=== PATIENT | female | born 1965 | race Caucasian/White ===

== ENCOUNTER 2016-12-15 19:39 | Emergency (ER) | payer BC ==
--- NOTE | 2016-12-15 21:39 | UC ---
Knee Pain HPI - HPI Summary HPI Summary: SUDDEN ONSET OF RIGHT KNEE PAIN AND STIFFNESS 2-3 WEEKS AGO. NO DISCRETE INJURY. 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 DOES NOT FEEL UNSTABLE. JUST HURTS. CAN NOT STRAIGHTEN IT. HEARS IT CRACKING AND POPPING. HAS BEEN USING A KNEE SLEEVE WHICH HELPS. - History of Current Complaint Chief Complaint: UCLowerExtremity Stated Complaint: knee pain Time Seen by Provider: 12/15/16 21:26 Hx Obtained From: Patient Hx Last Menstrual Period: 04/25/12 Onset/Duration: Gradual Onset, Lasting Weeks, Still Present Severity Initially: Moderate Severity Currently: Moderate Pain Intensity: 3 Pain Scale Used: 0-10 Numeric Character: Aching Aggravating Factor(s): Movement, Weight Bearing, Stairs Alleviating Factor(s): Rest, Position Associated Signs And Symptoms: Negative: Swelling, Redness, Weakness, Numbness, Tingling Able to Bear Weight: Yes - Allergies/Home Medications Allergies/Adverse Reactions: Allergies Allergy/AdvReac Type Severity Reaction Status Date / Time No Known Allergies Allergy Verified 12/15/16 19:54 PMH/Surg Hx/FS Hx/Imm Hx - Additional Past Medical History Additional PMH: FACTOR V LEIDEN Previously Healthy: Yes - Surgical History Surgical History: None - Family History Family History: noncontrib - Social History Alcohol Use: None Substance Use Type: None Smoking Status (MU): Never Smoked Tobacco Review of Systems Constitutional: Negative Skin: Negative Respiratory: Negative Cardiovascular: Negative Gastrointestinal: Negative Musculoskeletal: Arthralgia, Decreased ROM All Other Systems Reviewed And Are Negative: Yes Physical Exam Triage Information Reviewed: Yes Appearance: Well-Appearing, No Pain Distress, Well-Nourished Vital Signs: Initial Vital Signs Temp 99.6 F 12/15/16 19:50 Pulse 76 12/15/16 19:50 Resp 18 12/15/16 19:50 BP 104/67 12/15/16 19:50 Pulse Ox 97 12/15/16 19:50 Vital Signs Reviewed: Yes Eyes: Positive: Conjunctiva Clear ENT: Positive: Hearing grossly normal Neck: Positive: Supple Respiratory: Positive: No respiratory distress, No accessory muscle use Cardiovascular: Positive: Pulses Normal Abdomen Description: Positive: Soft Musculoskeletal: Positive: ROM Intact, No Edema, Other: - RIGHT KNEE: NO JOINT LINE TENDERNESS OR TENDERNESS OVER ANY BONY PROMINENCES. MCL AND LCL INTACT TO STRESS TESTING. NEG LACHMANS. NEG DRAWERS SIGNS. NEG MCMURRAYS. POS PATELLAR APPREHENSION TEST. NO TENDERNESS OVER PATELLAR LIGAMENT OR QUADRICEPS TENDON. ABLE TO MOVE THROUGH FULL ROM BUT VERY SLOWLY AND TENTATIVELY Neurological: Positive: Alert Psychological: Positive: Age Appropriate Behavior Skin: Negative: rashes Diagnostics - Radiology RIGHT KNEE XRAY Xray Interpretation: Positive (See Comments) - MILD OSTEOARTHRITIS Radiology Interpretation Completed By: Radiologist Knee Pain Course/Dx - Course Course Of Treatment: PT DECLINED KNEE IMMOBILIZER AND PAIN MEDS. FOLLOW-UP PCP OR ORTHO. - Differential Dx/Diagnosis Provider Diagnoses: RIGHT KNEE PAIN Discharge - Discharge Plan Condition: Stable Disposition: HOME Patient Education Materials: Knee Pain (ED) Forms: *Work Release Referrals: Sajan Barajas MD [Medical Doctor] - 2 Days Channing Gonzalez MD [Primary Care Provider] - If Needed Additional Instructions: MILD OSTEOARTHRITIS ON KNEE XRAY TODAY. OKAY TO USE KNEE SLEEVE FOR SUPPORT. FOLLOW-UP WITH PCP OR ORTHO.
--- NOTE | 2016-12-15 21:46 | RAD ---
INDICATION: Right knee pain. TECHNIQUE: 4 views of the right knee were obtained. FINDINGS: The bones are in normal alignment. No joint effusion or fracture is seen. There is mild osteoarthritic change in the patellofemoral compartment. IMPRESSION: MILD OSTEOARTHRITIC CHANGE.
[2016-12-15 22:00] VITALS: BP 102/61
== END 2016-12-15 22:21 | disposition home or self-care (01) ==
LOC: UCEAST 19:39
DX: M25.561 Pain in right knee (principal); M17.11 Unilateral primary osteoarthritis, right knee; D68.51 Activated protein C resistance
CPT/HCPCS: 99211; G0463

== ENCOUNTER 2017-04-05 07:15 | Emergency (ER) | payer BC ==
[2017-04-05 07:29] VITALS: BP 109/71
--- NOTE | 2017-04-18 16:15 | UC ---
Adan Jhaveri Natalie, scribed for Sheree Evans DO on 04/05/17 at 0827 . Respiratory Complaint HPI - HPI Summary HPI Summary: The pt is a 51 y/o F presenting to [facility] c/o upper respiratory symptoms starting 04/02/17. She is in current sinus pain. The pain is described as aching and sharp. The pain is rated 2/10. Pt additionally c/o sinus pressure, headache, sore throat, ear ache, and unproductive cough. Pt denies SOB. - History of Current Complaint Chief Complaint: UCRespiratory Stated Complaint: UPPER RESPITORY Time Seen by Provider: 04/05/17 08:14 Hx Obtained From: Patient Hx Last Menstrual Period: 04/25/12 Onset/Duration: Lasting Days - started 04/02/17, Still Present Severity Initially: Moderate Severity Currently: Moderate Pain Intensity: 2 Pain Scale Used: 0-10 Numeric Character: Cough: Nonproductive Aggravating Factors: Nothing Alleviating Factors: Nothing Associated Signs And Symptoms: Positive: Nasal Congestion, Sinus Discomfort. Negative: Fever - Allergies/Home Medications Allergies/Adverse Reactions: Allergies Allergy/AdvReac Type Severity Reaction Status Date / Time No Known Allergies Allergy Verified 04/05/17 07:25 PMH/Surg Hx/FS Hx/Imm Hx Cardiovascular History: Other - homozygous for Factor V Leiden Other Cardiovascular History: homozygous for Factor V Leiden - Surgical History Surgical History: Yes Surgery Procedure, Year, and Place: shoulder surgery - Family History Known Family History: Positive: Cardiac Disease, Diabetes, Other - Factor V Leiden - Social History Alcohol Use: None Substance Use Type: None Smoking Status (MU): Never Smoked Tobacco Review of Systems Constitutional: Other - NEGATIVE: fever ENT: Sore Throat, Ear Ache Respiratory: Cough - productive, Other - POSITIVE: sinus pressure; NEGATIVE: SOB Neurological: Headache All Other Systems Reviewed And Are Negative: Yes Physical Exam Triage Information Reviewed: Yes Vital Signs: Initial Vital Signs Temp 99.3 F 04/05/17 07:25 Pulse 99 04/05/17 07:25 Resp 17 04/05/17 07:25 BP 109/71 04/05/17 07:25 Pulse Ox 100 04/05/17 07:25 Vital Signs Reviewed: Yes - Additional Comments Appearance: Well-Appearing, No Pain Distress, Well-Nourished Eyes: conjunctiva clear, no discharge ENT: Hearing grossly normal, no muffled/hoarse voice, TMs normal, negative tonsillar swelling, negative tonsillar exudate, negative trismus, Minimal tenderness over maxillofacial Neck: Normal, Supple Respiratory/Lung Sounds: Lungs clear, Normal breath sounds, No respiratory distress, No accessory muscle use Cardiovascular: RRR, No murmur Musculoskeletal: Normal Neurological: Alert, muscle tone normal Psychiatric: Normal, age appropriate behavior Skin: Normal, Warm, Dry, Normal color UC Diagnostic Evaluation - Laboratory O2 Sat by Pulse Oximetry: 100 Respiratory Course/Dx - Course Course Of Treatment: Patient will be discharged with prescription for guaifenesin and follow up from PCP. The patient is agreeable with this plan. Medications reviewed. Allergies reviewed. - Differential Dx/Diagnosis Provider Diagnoses: Sinusitis Discharge - Discharge Plan Condition: Stable Disposition: HOME Prescriptions: Guaifenesin [Guaifenesin ER] 600 mg PO BID #1 box Patient Education Materials: Sinusitis (ED) Forms: *Work Release Referrals: Channing Gonzalez MD [Primary Care Provider] - 4 Days Additional Instructions: TRY USING THE NETTI POT IN THE MORNINGS DISCUSSED. YOU MUST ALWAYS USE CLEAN WATER. REMEMBER, POSTURE IS AN IMPORTANT FACTOR IN SINUS DRAINAGE. MOVE YOUR NECK, BREATHE. EXPECTORANT MEDICATION: WE SENT IN A SCRIPT FOR MUCINEX SO THAT IT IS EASIER FOR YOU TO PICK THE RIGHT MED AT THE PHARMACY. HOWEVER, YOU CAN ALSO GO TO THE [facility] AND BUY PLAIN GUAIFENESIN WITHOU BINDERS OR FILLERS. An expectorant medicine has been prescribed. This type of drug makes mucous thinner, helping the sinuses, nose, and bronchial tubes to remain free of pus and mucous. Expectorants make a cough less severe and more comfortable, and help infected sinuses drain. In general, antihistamines defeat the purpose of the expectorant by making mucous thicker. They should be avoided unless specifically recommended by your physician. The documentation as recorded by the Adan forbes Natalie accurately reflects the service I personally performed and the decisions made by , Sheree Evans DO.
== END 2017-04-05 08:45 | disposition home or self-care (01) ==
LOC: UCEAST 07:15
DX: J32.9 Chronic sinusitis, unspecified (principal); D68.51 Activated protein C resistance
CPT/HCPCS: 99212; G0463

== ENCOUNTER 2017-05-30 15:51 | Emergency (ER) | payer BC ==
[2017-05-30] MEDS ORDERED: cefTRIAXone(*) 2 GM in NS 0.9% 100 ML* 100 ML IVPB ONE (16:39)
[2017-05-30] MEDS ORDERED: cefTRIAXone VIAL(*) 1,000 MG VIAL ONE ×2 (16:45→16:47)
--- NOTE | 2017-05-30 16:51 | UC ---
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, worsening - History Of Current Complaint Chief Complaint: UCGU Stated Complaint: PAIN W/ URINATION Time Seen by Provider: 05/30/17 16:09 Hx Obtained From: Patient Hx Last Menstrual Period: 04/25/12 Severity Initially: Moderate Severity Currently: Severe Pain Intensity: 5 - Allergies/Home Medications Allergies/Adverse Reactions: Allergies Allergy/AdvReac Type Severity Reaction Status Date / Time No Known Allergies Allergy Verified 05/30/17 15:58 Home Medications: Home Medications Ascorbic Acid TAB* [Vitamin C TAB*] 500 mg PO DAILY 05/30/17 [History Confirmed 05/30/17] PMH/Surg Hx/FS Hx/Imm Hx - Additional Past Medical History Additional PMH: none Previously Healthy: Yes - Surgical History Surgical History: Yes Surgery Procedure, Year, and Place: shoulder surgery - Family History Known Family History: Positive: Cardiac Disease, Diabetes, Other - Factor V Leiden Family History: noncontrib - Social History Alcohol Use: None Substance Use Type: None Smoking Status (MU): Never Smoked Tobacco Review of Systems Constitutional: Chills, Fatigue Skin: Negative Eyes: Negative ENT: Negative Respiratory: Negative Cardiovascular: Negative Gastrointestinal: Negative Genitourinary: Dysuria, Frequency, Urgency Motor: Negative Neurovascular: Negative Musculoskeletal: Negative Neurological: Negative Psychological: Negative All Other Systems Reviewed And Are Negative: Yes Physical Exam Triage Information Reviewed: Yes Vital Signs: Initial Vital Signs Temp 38.0 C 05/30/17 15:55 Pulse 106 05/30/17 15:55 Resp 18 05/30/17 15:55 BP 123/84 05/30/17 15:55 Pulse Ox 100 05/30/17 15:55 Eye Exam: Normal ENT Exam: Normal Dental Exam: Normal Neck exam: Normal Neck: Positive: 1 Respiratory Exam: Normal Cardiovascular Exam: Normal Abdomen Description: Positive: Soft, CVA Tenderness (R), CVA Tenderness (L). Negative: Distended, Guarding Musculoskeletal Exam: Normal Neurological Exam: Normal Psychological Exam: Normal Skin Exam: Normal Complaint Female Dx - Course Course Of Treatment: UA positive for LE, blood, cloudy with a pH of 7 - Differential Dx/Diagnosis Differential Diagnosis/HQI/PQRI: Urinary Tract Infection Provider Diagnoses: pyelonephritis. UTI Discharge - Discharge Plan Condition: Stable Disposition: HOME Prescriptions: Sulfamethox/Trimethoprim DS* [Bactrim DS 800/160 TAB*] 1 tab PO BID 10 Days #20 tab Patient Education Materials: Kidney Infection (ED), Urinary Tract Infection in Women (ED) Referrals: Channing Gonzalez MD [Primary Care Provider] -
[2017-05-30] MEDS ORDERED: NS 0.9% 1000 ML* 1,000 ML IV ONE ×2 (17:45→18:48)
[2017-05-30] MEDS ORDERED: Ketorolac INJ* 30 MG/ML 1 ML VIAL IM ONE (18:09)
[2017-05-30] MEDS ORDERED: Acetaminophen TAB* 325 MG PO ONE (18:10)
[2017-05-30 19:26] VITALS: BP 123/68
== END 2017-05-30 19:20 | disposition home or self-care (01) ==
LOC: UCEAST 15:51
DX: N12 Tubulo-interstitial nephritis, not specified as acute or chronic (principal); N39.0 Urinary tract infection, site not specified; R53.83 Other fatigue
CPT/HCPCS: 81003; 87077; 87086; 87186; 96361; 96365; 99212; A9270-GY; G0463; J0696; J1885

== ENCOUNTER 2017-05-30 19:39 | Emergency (ER) | payer BC ==
[2017-05-30] MEDS ORDERED: Ondansetron INJ* 2 MG/ML VIAL IV ONE (20:03)
[2017-05-30] MEDS ORDERED: NS 0.9% 1000 ML* 1,000 ML IV ONE (20:03)
[2017-05-30 20:34] LABS: ABS Basophils 0.1 10^3/ul (0-0.2); ABS Eosinophils 0 10^3/ul (0-0.6); ABS Monocytes 0.6 10^3/ul (0-0.8); ABS Neutrophils 10.8 10^3/ul (1.5-7.7); ABS Nucleated RBC 0 10^3/ul; Eosinophil % 0.1 % (0-6); Hematocrit 33 % (35-47); Hemoglobin 11.2 g/dl (12.0-16.0); Lymphocyte % 14.5 % (25-47); Mean Corpuscular HGB Conc 34 g/dl (31-36); Mean Corpuscular Hemoglobin 29 pg (27-31); Mean Corpuscular Volume 85 fL (80-97); Mean Platelet Volume 8 um3 (7.4-10.4); Nucleated Red Blood Cells % 0; Platelet Count 169 10^3/ul (150-450); Red Cell Distribution Width 14 % (10.5-15); White Blood Count 13.5 10^3/ul (3.5-10.8)
[2017-05-30 20:52] LABS: EGFR Non-African American 98.8 (>60)
--- NOTE | 2017-05-30 21:38 | RAD ---
CLINICAL HISTORY: Abdominal pain COMPARISON: None relevant available at the time of dictation TECHNIQUE: Multiple contiguous axial CT scans were obtained of the abdomen and pelvis, without intravenous contrast enhancement. Coronal and sagittal multiplanar reformations are submitted for review. Oral contrast was administered. FINDINGS: The study is limited by the lack of intravenous contrast. This limits evaluation of the solid organs and vasculature. LUNG BASES: The lung bases are clear. LIVER: The liver is normal in shape, size, contour, and attenuation. BILE DUCTS: There is no intrahepatic or extrahepatic biliary dilatation. GALLBLADDER: The gallbladder is normal, without pericholecystic inflammatory change. PANCREAS: The pancreas is normal, without mass or ductal dilatation. SPLEEN: Normal in size and appearance. UPPER GI TRACT: Evaluation of the gastrointestinal tract is limited by incomplete gastric distention. The upper GI tract is unremarkable. SMALL BOWEL AND MESENTERY: The small bowel is normal in contour, course, and caliber. There is no obstruction or dilatation. COLON: The colon is normal in contour, course, caliber. There is no pericolonic inflammatory change. There is a tubular, vermiform, hollow viscus that is blind ending, and originates from the cecum, consistent with a normal appendix. There is no periappendiceal inflammatory change. This is best seen on axial images 94 through 101 ADRENALS: Normal bilaterally. KIDNEYS: There is mild edema of the right kidney with moderate pelvocaliectasis and hydroureter. There is a punctate calculus of the distal right ureter at the UVJ measuring 0.2 cm in size. BLADDER: The bladder is smooth in contour. PELVIC ORGANS: The uterus and adnexa are grossly normal for technique. AORTA: The aorta is normal. IVC: Unremarkable LYMPH NODES: There is no lymphadenopathy by size criteria. ABDOMINAL WALL: There is a small fat-containing umbilical hernia. BONES AND SOFT TISSUES: Mild degenerative changes noted at L5-S1 OTHER: None IMPRESSION: PUNCTATE RIGHT UVJ STONE WITH MODERATE RIGHT HYDRONEPHROSIS.
[2017-05-30 21:42] LABS: Urine Appearance Cloudy; Urine Blood 2+ (Negative); Urine Color Straw; Urine Ketones Negative (Negative); Urine Protein Negative (Negative); Urine Specific Gravity 1.002 (1.010-1.030); Urine Urobilinogen Negative (Negative)
[2017-05-30] MEDS ORDERED: Vancomycin(*) 1,000 MG in NS 0.9% 250 ML* 250 ML IVPB ONE (22:05)
[2017-05-30] MEDS ORDERED: Ketorolac INJ* 30 MG/ML 1 ML VIAL IV PUSH ONE (22:21)
--- NOTE | 2017-05-30 22:56 | ED ---
Sandra Jhaveri Julia, scribed for Massimo Rockwell MD on 05/30/17 at 2220 . Abdominal Pain/Female - HPI Summary HPI Summary: This patient is a 51 year old F presenting to [facility] with a chief complaint of sudden severe bilateral flank pain radiating to the abdomen worse on left than right since 14:30 today. Patient reports nausea, currently resolved vomiting, dysuria, and a maximum fever of 100.8. The patient rates the pain 1/10 in severity. Patient was sent to the emergency department from [facility], where she was given Rocephin (2 grams), and Toradol. Patient denies a history of kidney stones and back injury. - History of Current Complaint Chief Complaint: EDFlankPain Stated Complaint: FLANK PAIN SENT FROM Time Seen by Provider: 05/30/17 19:53 Hx Obtained From: Patient Hx Last Menstrual Period: 04/25/12 Onset/Duration: Sudden Onset, Lasting Hours, Still Present Timing: Constant Severity Initially: Severe Severity Currently: Mild Pain Intensity: 1 Pain Scale Used: 0-10 Numeric Location: Flank Radiates: Yes Radiates to: Other - abdomen worse on left Associated Signs and Symptoms: Positive: Fever, Urinary Symptoms, Nausea, Vomiting Allergies/Adverse Reactions: Allergies Allergy/AdvReac Type Severity Reaction Status Date / Time No Known Allergies Allergy Verified 05/30/17 15:58 PMH/Surg Hx/FS Hx/Imm Hx Endocrine/Hematology History: Denies: Hx Diabetes Cardiovascular History: Denies: Hx Hypertension, Hx Pacemaker/ICD Respiratory History: Denies: Hx Asthma History: Denies: Hx Kidney Stones Sensory History: Denies: Hx Hearing Aid Psychiatric History: Denies: Hx Panic Disorder - Cancer History Hx Chemotherapy: No Hx Radiation Therapy: No - Surgical History Surgery Procedure, Year, and Place: shoulder surgery Infectious Disease History: No Infectious Disease History: Denies: Hx Clostridium Difficile, Hx Hepatitis, Hx Human Immunodeficiency Virus (HIV), Hx of Known/Suspected MRSA, Hx Shingles, Hx Tuberculosis, Hx Known/ Suspected VRE, Hx Known/Suspected VRSA, History Other Infectious Disease, Traveled Outside the [place] in Last 30 Days - Family History Known Family History: Positive: Cardiac Disease, Diabetes, Other - Factor V Leiden Family History: noncontrib - Social History Alcohol Use: None Substance Use Type: Reports: None Smoking Status (MU): Never Smoked Tobacco Review of Systems Positive: Fever Positive: Abdominal Pain, Vomiting, Nausea Positive: dysuria, flank pain All Other Systems Reviewed And Are Negative: Yes Physical Exam - Summary Physical Exam Summary: VITAL SIGNS: Reviewed. GENERAL: Patient is a well-developed and nourished female who is lying comfortable in the stretcher. Patient is not in any acute respiratory distress. HEAD AND FACE: No signs of trauma. No ecchymosis, hematomas or skull depressions. No sinus tenderness. EYES: PERRLA, EOMI x 2, No injected conjunctiva, no nystagmus. EARS: Hearing grossly intact. Ear canals and tympanic membranes are within normal limits. MOUTH: Oropharynx within normal limits. NECK: Supple, trachea is midline, no adenopathy, no JVD, no carotid bruit, no c- spine tenderness, neck with full ROM. CHEST: Symmetric, no tenderness at palpation LUNGS: Clear to auscultation bilaterally. No wheezing or crackles. CVS: Regular rate and rhythm, S1 and S2 present, no murmurs or gallops appreciated. ABDOMEN: Soft, with LLQ tenderness. No signs of distention. No rebound no guarding, and no masses palpated. Bowel sounds are normal. EXTREMITIES: FROM in all major joints, no edema, no cyanosis or clubbing. NEURO: Alert and oriented x 3. No acute neurological deficits. Speech is normal and follows commands. SKIN: Dry and warm Triage Information Reviewed: Yes Vital Signs On Initial Exam: Initial Vitals Temp Pulse Resp BP Pulse Ox 99.9 F 101 18 120/74 95 05/30/17 19:42 05/30/17 19:42 05/30/17 19:42 05/30/17 19:42 05/30/17 19:42 Vital Signs Reviewed: Yes Diagnostics - Vital Signs Vital Signs Temp Pulse Resp BP Pulse Ox 05/30/17 19:42 99.9 F 101 18 120/74 95 - Laboratory Lab Results: Lab Results 05/30/17 05/30/17 05/30/17 Range/Units 20:23 20:23 20:23 WBC 13.5 H (3.5-10.8) 10^3/ul RBC 3.90 L (4.0-5.4) 10^6/ul Hgb 11.2 L (12.0-16.0) g/dl Hct 33 L (35-47) % MCV 85 (80-97) fL MCH 29 (27-31) pg MCHC 34 (31-36) g/dl RDW 14 (10.5-15) % Plt Count 169 (150-450) 10^3/ul MPV 8 (7.4-10.4) um3 Neut % (Auto) 80.3 (38-83) % Lymph % (Auto) 14.5 L (25-47) % [place] % (Auto) 4.7 (0-7) % Eos % (Auto) 0.1 (0-6) % Baso % (Auto) 0.4 (0-2) % Absolute Neuts (auto) 10.8 H (1.5-7.7) 10^3/ul Absolute Lymphs (auto) 2.0 (1.0-4.8) 10^3/ul Absolute Monos (auto) 0.6 (0-0.8) 10^3/ul Absolute Eos (auto) 0 (0-0.6) 10^3/ul Absolute Basos (auto) 0.1 (0-0.2) 10^3/ul Absolute Nucleated RBC 0 10^3/ul Nucleated RBC % 0 Sodium 138 (133-145) mmol/L Potassium 3.7 (3.5-5.0) mmol/L Chloride 108 (101-111) mmol/L Carbon Dioxide 25 (22-32) mmol/L Anion Gap 5 (2-11) mmol/L BUN 6 (6-24) mg/dL Creatinine 0.63 (0.51-0.95) mg/dL Est GFR ( Amer) 127.1 (>60) Est GFR (Non-Af Amer) 98.8 (>60) BUN/Creatinine Ratio 9.5 (8-20) Glucose 100 (70-100) mg/dL Lactic Acid 0.5 (0.5-2.0) mmol/L Calcium 8.4 L (8.6-10.3) mg/dL Magnesium 1.6 L (1.9-2.7) mg/dL Total Bilirubin 0.40 (0.2-1.0) mg/dL AST 16 (13-39) U/L ALT 17 (7-52) U/L Alkaline Phosphatase 69 (34-104) U/L C-Reactive Protein 44.84 H (< 5.00) mg/L Total Protein 6.5 (6.4-8.9) g/dL Albumin 3.6 (3.2-5.2) g/dL Globulin 2.9 (2-4) g/dL Albumin/Globulin Ratio 1.2 (1-3) Lipase 17 (11.0-82.0) U/L Urine Color Urine Appearance Urine pH (5-9) Ur Specific [place] (1.010-1.030) Urine Protein (Negative) Urine Ketones (Negative) Urine Blood (Negative) Urine Nitrate (Negative) Urine Bilirubin (Negative) Urine Urobilinogen (Negative) Ur Leukocyte Esterase (Negative) Urine WBC (Auto) (Absent) Urine RBC (Auto) (Absent) Urine Bacteria (Absent) Urine Glucose (Negative) 05/30/17 Range/Units 21:14 WBC (3.5-10.8) 10^3/ul RBC (4.0-5.4) 10^6/ul Hgb (12.0-16.0) g/dl Hct (35-47) % MCV (80-97) fL MCH (27-31) pg MCHC (31-36) g/dl RDW (10.5-15) % Plt Count (150-450) 10^3/ul MPV (7.4-10.4) um3 Neut % (Auto) (38-83) % Lymph % (Auto) (25-47) % [place] % (Auto) (0-7) % Eos % (Auto) (0-6) % Baso % (Auto) (0-2) % Absolute Neuts (auto) (1.5-7.7) 10^3/ul Absolute Lymphs (auto) (1.0-4.8) 10^3/ul Absolute Monos (auto) (0-0.8) 10^3/ul Absolute Eos (auto) (0-0.6) 10^3/ul Absolute Basos (auto) (0-0.2) 10^3/ul Absolute Nucleated RBC 10^3/ul Nucleated RBC % Sodium (133-145) mmol/L Potassium (3.5-5.0) mmol/L Chloride (101-111) mmol/L Carbon Dioxide (22-32) mmol/L Anion Gap (2-11) mmol/L BUN (6-24) mg/dL Creatinine (0.51-0.95) mg/dL Est GFR ( Amer) (>60) Est GFR (Non-Af Amer) (>60) BUN/Creatinine Ratio (8-20) Glucose (70-100) mg/dL Lactic Acid (0.5-2.0) mmol/L Calcium (8.6-10.3) mg/dL Magnesium (1.9-2.7) mg/dL Total Bilirubin (0.2-1.0) mg/dL AST (13-39) U/L ALT (7-52) U/L Alkaline Phosphatase (34-104) U/L C-Reactive Protein (< 5.00) mg/L Total Protein (6.4-8.9) g/dL Albumin (3.2-5.2) g/dL Globulin (2-4) g/dL Albumin/Globulin Ratio (1-3) Lipase (11.0-82.0) U/L Urine Color Straw Urine Appearance Cloudy Urine pH 7.0 (5-9) Ur Specific [place] 1.002 L (1.010-1.030) Urine Protein Negative (Negative) Urine Ketones Negative (Negative) Urine Blood 2+ A (Negative) Urine Nitrate Negative (Negative) Urine Bilirubin Negative (Negative) Urine Urobilinogen Negative (Negative) Ur Leukocyte Esterase 3+ A (Negative) Urine WBC (Auto) 3+(>20/hpf) A (Absent) Urine RBC (Auto) 1+(3-5/hpf) A (Absent) Urine Bacteria 1+ A (Absent) Urine Glucose Negative (Negative) Result Diagrams: 05/30/17 20:23 05/30/17 20:23 Lab Statement: Any lab studies that have been ordered have been reviewed, and results considered in the medical decision making process. - CT A/P CT Interpretation Completed By: Radiologist - PUNCTATE RIGHT UVJ STONE WITH MODERATE RIGHT HYDRONEPHROSIS. ED Physician has reviewed this report. Abdominal Pain Fem Course/Dx - Course Course Of Treatment: Patient presents with sudden severe bilateral flank pain radiating to the abdomen worse on left than right since 14:30 today. Patient reports nausea, currently resolved vomiting, dysuria, and a maximum fever of 100.8. Patient was given 2 grams of Rochepin at [facility]. Bloodwork is unremarkable. An abdominal and pelvis CT is indicative of a kidney stone at the right UVJ and hydronephrosis. A urine analysis is indicative of a UTI. Transfer process began at 22:00 due to lack of urology coverage. Patient is accepted to [facility] by Dr. Hickman. - Diagnoses Provider Diagnoses: Pyelonephritis, Ureterovesical junction (UVJ) obstruction, Right ureteral stone Discharge - Discharge Plan Condition: Stable Disposition: TRANS HIGHER LVL OF CARE FAC Referrals: Channing Gonzalez MD [Primary Care Provider] - The documentation as recorded by the Sandra forbes Julia accurately reflects the service I personally performed and the decisions made by , Massimo Rockwell MD.
[2017-05-30 23:57] VITALS: BP 98/71
== END 2017-05-31 00:06 | disposition short-term general hospital (02) ==
LOC: ED 19:39
DX: N13.2 Hydronephrosis with renal and ureteral calculous obstruction (principal); N13.6 Pyonephrosis
CPT/HCPCS: 36415; 74176; 80053; 81003; 81015; 83605; 83690; 83735; 85025; 86140; 87040; 96374; 96375; 99284; J1885; J3370